=== PATIENT | female | born 1980 | race Caucasian/White ===

== ENCOUNTER 2017-01-13 14:23 | Inpatient (IN) | payer MEDICAID ==
[~2017-01-13] VITALS: Ht 152.4 cm; Wt 79.1 kg
[2017-01-13] VITALS (9 sets, daily range): BP systolic 112–128; BP diastolic 62–76; PULSE 75–82; RESP 18–20; Ht 152.4 cm; Wt 79.1 kg
[~2017-01-13 14:23] MED LIST: ACET-1145 PO; FER325 PO; IBUP800T25 GTB; MULT-761 PO; PREN-39 PO
[2017-01-13] MEDS ORDERED: LACTATED RINGER'S 1,000 ML IV SCH (14:59)
[2017-01-13] MEDS ORDERED: METHYLERGONOVINE 0.2 MG INJ IM PRN ×2 (15:00→22:00)
[2017-01-13] MEDS ORDERED: MISOPROSTOL 200 MCG TAB PR PRN ×2 (15:00→22:00)
[2017-01-13] MEDS ORDERED: OXYTOCIN 30 UNITS/LR 500 ML IV PRN ×2 (15:00→22:00)
[2017-01-13] MEDS ORDERED: CARBOPROST 250 MCG INJ IM PRN ×2 (15:00→22:00)
[2017-01-13 15:57] LABS: ADD SCAN DIFF NO
[2017-01-13] MEDS ORDERED: CLINDAMYCIN 900 MG INJ IM ONE (16:00)
[2017-01-13] MEDS ORDERED: GENTAMICIN 80 MG/NS (PMX) 50 ML IVPB SCH (16:00)
[2017-01-13] MEDS ORDERED: CLINDAMYCIN 900 MG/D5W (PMX) 50 ML IVPB SCH (16:00)
[2017-01-13 16:03] LABS: BASOPHILS % 0.3 % (0.0-2.0); EOSINOPHILS % 0.1 % (0.0-7.0); HEMATOCRIT 37.5 % (37.0-47.0); HEMOGLOBIN 12.7 g/dl (12.0-16.0); LYMPHOCYTES # 1.1 10^3/ul (0.8-2.9); MEAN CORPUSCULAR HEMOGLOBIN 31.8 pg (29.0-33.0); MEAN CORPUSCULAR HGB CONC 33.9 g/dl (32.0-37.0); MEAN CORPUSCULAR VOLUME 93.8 fl (82.0-101.0); MEAN PLATELET VOLUME 9.7 fl (7.4-10.4); MONOCYTE # 0.7 10^3/ul (0.3-0.9); MONOCYTES % 6.5 % (0.0-11.0); NEUTROPHIL # 9.4 10^3/ul (1.6-7.5); NEUTROPHILS % 82.2 % (39.0-77.0); PLATELET COUNT 312 10^3/UL (140-415); RED CELL DISTRIBUTION WIDTH 13.9 % (11.5-14.5); WHITE BLOOD COUNT 11.4 10^3/ul (4.8-10.8)
[2017-01-13 16:10] LABS: INR 0.9; PARTIAL THROMBOPLASTIN TIME 27.4 Sec (25.0-35.0); PROTIME 12.1 Sec (12.2-14.2); PT RATIO 0.9
[2017-01-13] MEDS ORDERED: ONDANSETRON 4 MG INJ IV STA (16:11)
[2017-01-13] MEDS ORDERED: CITRIC ACID/NA CITRATE 30 ML CUP PO ONE (16:30)
[2017-01-13] MEDS ORDERED: OXYTOCIN 10 UNIT INJ ONE (16:37)
[2017-01-13] MEDS ORDERED: morphine SULFATE/PF (10 MG/10 ML) INJ ONE (16:37)
[2017-01-13] MEDS ORDERED: PHENYLephrine (100 MCG/ML) 5ML SYG ONE (16:37)
[2017-01-13] MEDS ORDERED: KETOROLAC 30 MG INJ ONE (16:59)
[2017-01-13] MEDS ORDERED: METOCLOPRAMIDE 10 MG INJ ONE (16:59)
[2017-01-13] MEDS ORDERED: DEXAMETHASONE 4 MG/ML 1 ML INJ ONE (16:59)
[2017-01-13] MEDS ORDERED: HYDROmorphONE 1 MG/ML SYG IV PRN ×2 (18:00)
[2017-01-13] MEDS ORDERED: DIPHENHYDRAMINE 50 MG INJ IV PRN (18:00)
[2017-01-13] MEDS ORDERED: NALOXONE (0.4 MG/ML) INJ IV PRN (18:00)
[2017-01-13] MEDS ORDERED: ONDANSETRON 4 MG INJ IV PRN (18:00)
[2017-01-13] MEDS ORDERED: morphine 2 MG INJ IV PRN (18:00)
[2017-01-13] MEDS ORDERED: PROCHLORPERAZINE 10 MG INJ IV PRN (18:00)
[2017-01-13] MEDS ORDERED: morphine 4 MG/ML VIAL IV PRN (18:00)
[2017-01-13] MEDS: OXYTOCIN 30 UNITS/LR 500 ML IV SCH ×2 (18:15→18:39)
--- NOTE | 2017-01-13 19:05 | HP ---
Date/Time of Note Date/Time of Note DATE: 01/13/17 TIME: 19:03 OB - History Hx of Present Free Text/Dictation admitted for repeat C/S Last Menstrual Period: Apr 24, 2016 Estimated Due Date: Jan 18, 2017 : 4 Para: 3 Care: Good Care Ultrasounds: Normal mid trimester US Obstetrical Complications: Gestational Diabetes Medical Complications: Other (previous C/S X 3 ) Past Family/Social History * Past Medical, Surgical, Family and Obstetric Histories reviewed from chart. Blood Type: O+ Rubella: immune RPR/VDRL: Negative GBS Status: Negative HBsAG: Negative OB Admission Exam Physical Exam HEENT: WNL Heart: Rhythm Normal Lungs: Clear, Equal Abdomen: WNL Extremities: Normal Reflexes: Normal Cervical Dilatation: None Effacement: 0% Station: -3 Membranes: Intact Heart Rate: 140's Accelerations: Accelerations Present Decelerations: No Decelerations Varibility: Marked Contractions on Admission: None Last 72 hourBlood Glucose Bedside Glucose - 72 Hours Test 01/13/17 17:49 Bedside Glucose 79mg/dL (70-220) Last 72 hours Lab Results CBC & BMP 01/13/17 14:59 01/13/17 15:32 OB Assessment/Plan Reason for admission: section Other Assessment: term gestation previous C/S X 3 Other plan: repeat C/S ROSA HEBERT MD Jan 13, 2017 19:05
--- NOTE | 2017-01-13 19:09 | OPR ---
Operative Report Planned Procedure Procedure date Jan 13, 2017 Procedure(s) repeat C/S Performed by: ROSA HEBERT MD Assisting provider: DEEPTI ALVARES MD Anesthesiologist: MIKE WINKLER MD Pre-procedure diagnosis term gestation previous C/S X 3 Anesthesia Type: spinal Procedure Description Under satisfactory anaesthesia a Pfannenstiel incision was made two fingerbreadth above and parallel to the symphysis of pubis around the previous scar and previous scar was removed Incision was extended laterally to the border of the Recti muscles on either sides. Incision was carried down with sharp and blunt dissection until fascia was reached. Anterior Recti muscle fascia was incised in mid portion and incision extended laterally to the border of skin incision. Fascia was mobilized from muscle superiorly and Recti muscles were from midline using sharp and blunt dissection. Peritoneum was visualized; Avoiding bowel and bladder it was incised . Incision was extended superiorly and inferiorly. Bladder blade was placed. Posterior peritoneum covering the lower segment of the uterus and lower segment of the uterus were incised.Low transverse uterine incision was made on lower segment of the uterus. Incision extended laterally to the border of Round Lig. on either sides and baby was delivered from OT. position . Amniotic fluid appeared clear. Cord blood was obtained and cord had 3 vessels . Placenta was delivered spontaneously and appeared intact and complete. Intrauterine cavity was rubbed with a laparotomy sponge. Uterine incision was closed in 2 layers using running stitches of No1 Monocryl. Hemostasis appeared secure. Ovaries and Fallopian tubes were within normal limits. Announcing needle, lap sponge and instrument count to be correct abdomen was closed in layers as follows: Peritoneum and Recti muscles with running stitches of 20 Vicryl. Fascia with running stitch of No 1 PDS. Subcutaneous tissue with running stitches of 20 Chromic and skin was closed using ye. Patient tolerated the procedure well and was transferred to [facility] in good condition. Post-Procedure Post-procedure diagnosis S/P C/S Findings: Live Baby Specimen removed: No Complications: None Pt Condition post procedure: stable Disposition: PACU Physician Certification I, the undersigned physician, hereby certify that I have discussed the procedure described in this consent form with this patient (or the patient's legal member service representative), including: * The risk and benefits of the procedure; * Any adverse reactions that may reasonably be expected to occur; * Any alternative efficacious methods of treatment which may be medically viable ; * The potential problems that may occur during recuperation; * Potential for blood transfusion and associated risks/benefits; and * Any research or economic interest I may have regarding this treatment. I further certify that the patient/legally responsible person was encouraged to ask question and that all questions were answered. ROSA HEBERT MD Jan 13, 2017 19:09
[2017-01-13] MEDS ORDERED: IBUPROFEN 800 MG TAB PO SCH (22:00)
[2017-01-13] MEDS ORDERED: NA PHOSPHATE/BIPHOS 133 ML ENEMA PR PRN ×2 (22:00→22:30)
[2017-01-13] MEDS ORDERED: ACETAMINOPHEN/CODEINE #3 TAB PO PRN (22:00)
[2017-01-13] MEDS ORDERED: LANOLIN 7 GM TUBE TOP PRN (22:00)
[2017-01-13] MEDS: LACTATED RINGER'S 1,000 ML IV SCH (22:16)
[2017-01-14] VITALS: BP 114/64; PULSE 94; RESP 18
[2017-01-14] MEDS: CLINDAMYCIN 900 MG/D5W (PMX) 50 ML IVPB SCH ×2 (00:09→08:30)
[2017-01-14] MEDS: GENTAMICIN 80 MG/NS (PMX) 50 ML IVPB SCH ×2 (00:09→09:12)
[2017-01-14] MEDS: KETOROLAC 30 MG INJ IV PRN ×2 (03:48→14:04)
[2017-01-14 04:00] VITALS: BP 102/60; PULSE 83; RESP 18
[2017-01-14] MEDS: IBUPROFEN 800 MG TAB PO SCH ×3 (06:00→22:00)
[2017-01-14] MEDS: LACTATED RINGER'S 1,000 ML IV SCH ×2 (06:06→15:01)
[2017-01-14 08:59] VITALS: BP 116/84; RESP 20
[2017-01-14] MEDS ORDERED: metFORMIN (XR) 500 MG TAB PO SCH (09:00)
[2017-01-14] MEDS ORDERED: DEXTROSE 50% 50 ML SYRINGE IV PRN ×2 (09:30)
[2017-01-14] MEDS ORDERED: GLUCOSE GEL 15 GRAM TUBE BUCCAL PRN (09:30)
[2017-01-14] MEDS ORDERED: BISACODYL 10 MG SUPP PR ONE ×2 (09:30→23:36)
[2017-01-14] MEDS ORDERED: GLUCOSE GEL 15 GRAM TUBE PO PRN ×2 (09:30)
[2017-01-14] MEDS ORDERED: GLUCAGON 1 MG INJ IM PRN (09:30)
[2017-01-14] MEDS: ACCU-CHEK XX SCH ×3 (11:43→21:58)
[2017-01-14 12:30] VITALS: BP 103/69; RESP 19
[2017-01-14 16:00] VITALS: BP 106/59; PULSE 80; RESP 19
[2017-01-14] MEDS ORDERED: CLINDAMYCIN 900 MG/D5W (PMX) 50 ML IVPB SCH (16:00)
--- NOTE | 2017-01-14 16:58 | PN ---
Date/Time of Note Date/Time of Note DATE: 01/14/17 TIME: 16:56 Assessment/Plan VTE Prophylaxis VTE Prophylaxis Intervention: ambulation Lines/Catheters IV Catheter Type (from Nrsg): Peripheral IV Assessment/Plan Assessment/Plan POD # 1 S/P C/S will advance diet and ambulate Subjective 24 Hr Interval Summary NO BM Passing flatus Constitutional: BM, ambulates, flatus, improved, no complaints, urine output Pain Control: well controlled Exam/Review of Systems Vital Signs Vitals Vital Signs Date Time Temp Pulse Resp B/P Pulse Ox O2 Delivery O2 Flow Rate FiO2 01/14/17 12:30 97.9 19 103/69 Room Air 01/14/17 08:59 99 01/14/17 04:00 83 Intake and Output 01/13/17 01/13/17 01/14/17 15:00 23:00 07:00 Intake Total 500 ml Output Total 750 ml 500 ml Balance -250 ml -500 ml Exam Free Text/Dictation Abdomen: soft BS + Incision: covered Constitutional: alert, oriented, well developed Psych: nl mood/affect, no complaints Head: atraumatic, normocephalic Eyes: EOMI, nl conjunctiva, nl lids, nl sclera ENMT: mucosa pink and moist, nl external ears & nose, nl lips & teeth, nl nasal mucosa & septum Neck: non-tender, supple Respiratory: clear to auscultation, normal air movement Cardiovascular: nl pulses, regular rate and rhythm Gastrointestinal: nl liver, spleen, non-tender, soft Musculoskeletal: nl extremities to inspection, nl gait and stance Extremities: normal pulses Neurological: PHYSICIAN NEONATOLOGY II-XII intact, nl mental status, nl speech, nl strength Skin: nl turgor, rash or lesions Lymph: nl lymph nodes Results Result Diagram: 01/13/17 1532 01/13/17 1459 ROSA HEBERT MD Jan 14, 2017 16:58
[2017-01-14] MEDS ORDERED: GENTAMICIN 80 MG/NS (PMX) 50 ML IVPB SCH (17:00)
[2017-01-14 17:36] LABS: ADD SCAN DIFF NO
[2017-01-14 17:39] LABS: BASOPHILS % 0.4 % (0.0-2.0); EOSINOPHILS # 0.1 10^3/ul (0.0-0.5); EOSINOPHILS % 0.7 % (0.0-7.0); HEMATOCRIT 30.5 % (37.0-47.0); HEMOGLOBIN 10.5 g/dl (12.0-16.0); LYMPHOCYTES # 1.4 10^3/ul (0.8-2.9); LYMPHOCYTES % 12.3 % (15.0-51.0); MEAN CORPUSCULAR HEMOGLOBIN 31.8 pg (29.0-33.0); MEAN CORPUSCULAR HGB CONC 34.4 g/dl (32.0-37.0); MEAN CORPUSCULAR VOLUME 92.4 fl (82.0-101.0); MEAN PLATELET VOLUME 9.3 fl (7.4-10.4); MONOCYTE # 1.1 10^3/ul (0.3-0.9); MONOCYTES % 9.4 % (0.0-11.0); NEUTROPHIL # 8.7 10^3/ul (1.6-7.5); NEUTROPHILS % 76.6 % (39.0-77.0); PLATELET COUNT 270 10^3/UL (140-415); WHITE BLOOD COUNT 11.3 10^3/ul (4.8-10.8)
[2017-01-14] MEDS: metFORMIN (XR) 500 MG TAB PO SCH (18:11)
[2017-01-14] MEDS: OXYCODONE/ACETAMINOPHEN (5/325) TAB PO PRN (18:15)
[2017-01-14 20:00] VITALS: BP 102/58; PULSE 76; RESP 18
[2017-01-14] MEDS: SENNA/DOCUSATE NA (8.6MG/50MG) TAB PO SCH (21:58)
[2017-01-15] MEDS: CLINDAMYCIN 300 MG CAP PO SCH ×5 (00:40→23:37)
[2017-01-15] MEDS: OXYCODONE/ACETAMINOPHEN (5/325) TAB PO PRN ×3 (00:42→09:09)
[2017-01-15 04:00] VITALS: BP 105/68; PULSE 18; RESP 18
[2017-01-15] MEDS: IBUPROFEN 800 MG TAB PO SCH ×3 (06:07→21:09)
[2017-01-15 08:00] VITALS: BP 133/74; PULSE 91; RESP 18
[2017-01-15] MEDS: ACCU-CHEK XX SCH (08:10)
[2017-01-15] MEDS: SENNA/DOCUSATE NA (8.6MG/50MG) TAB PO SCH ×2 (09:06→20:58)
[2017-01-15] MEDS: metFORMIN (XR) 500 MG TAB PO SCH ×2 (09:10→20:58)
--- NOTE | 2017-01-15 10:31 | OPPN ---
Date/Time of Note Date/Time of Note DATE: 01/15/17 TIME: 10:31 Post-Anesthesia Notes Post-Anesthesia Note Activity: WNL Respiratory function: WNL Cardiovascular function: WNL Mental status: Baseline Pain reasonably controlled: Yes Hydration appropriate: Yes Nausea/Vomiting absent: Yes MIKE WINKLER MD Jan 15, 2017 10:31
--- NOTE | 2017-01-15 14:02 | DS ---
Date/Time of Note Date/Time of Note home next day DATE: 01/15/17 TIME: 14:00 Obstetrical Discharge Record Final Diagnosis Final Diagnosis: Term delivered Other Final Diagnosis S/P C/S Section Section: Repeat Condition on Discharge Physical Assessment Last Vitals: see nurses notes Voiding: Yes Bowel Movement: Yes Breast: Soft, non-tender, Filling Fundus: Firm Abdomen and Incision: soft bs + incision: healing well Episiotomy: NA Calf Tenderness: No Patient Condition: Good ROSA HEBERT MD Jan 15, 2017 14:02
--- NOTE | 2017-01-15 14:04 | DS ---
Date/Time of Note Date/Time of Note home next day DATE: 01/15/17 TIME: 14:02 Discharge Summary Admission/Discharge Info Admit Date/Time Jan 13, 2017 at 14:23 Discharge Date/Time 01/16/2017 Final Diagnosis S/P C/S Patient Condition: Good Procedures repeat C/S Hx of Present Illness 36 y/o female had repeat C/S Hospital Course uncomplicated Home Meds Reported Medications Multivitamin (MULTI VITAMIN DAILY) 1 Each Tablet, 1 EACH PO DAILY for 60 Days 11/02/13 Ferrous Sulfate* (Ferrous Sulfate*) 325 Mg Tabec, 325 MG PO DAILY for 60 Days 11/02/13 Ibuprofen* (Ibuprofen*) 800 Mg Tab, 800 MG GTB Q8 for 7 Days 11/02/13 Acetaminophen-Codeine (Tylenol With Codeine #3 Tablet) 1 Tab Tablet, 2 TAB PO Q4 Y, #30 1 Refill 11/02/13 Vits W-Ca,Fe,Fa(<1MG) ( Vitamins) 1 Tab Tablet, 1 TAB PO DAILY 10/21/13 Follow-up Plan 2-3 days for staple removal Pending Labs Laboratory Tests Test 01/14/17 15:07 01/14/17 17:15 01/14/17 21:34 01/15/17 09:03 Bedside Glucose 78mg/dL (70-220) 93mg/dL (70-220) 99mg/dL (70-220) White Blood Count 11.310^3/ul (4.8-10.8) Red Blood Count 3.3010^6/ul (4.20-5.40) Hemoglobin 10.5g/dl (12.0-16.0) Hematocrit 30.5% (37.0-47.0) Mean Corpuscular Volume 92.4fl (82.0-101.0) Mean Corpuscular Hemoglobin 31.8pg (29.0-33.0) Mean Corpuscular Hemoglobin Concent 34.4g/dl (32.0-37.0) Red Cell Distribution Width 14.0% (11.5-14.5) Platelet Count 75219^3/UL (140-415) Mean Platelet Volume 9.3fl (7.4-10.4) Neutrophils % 76.6% (39.0-77.0) Lymphocytes % 12.3% (15.0-51.0) Monocytes % 9.4% (0.0-11.0) Eosinophils % 0.7% (0.0-7.0) Basophils % 0.4% (0.0-2.0) Nucleated Red Blood Cells % 0.0/100WBC (0.0-0.0) Neutrophils # 8.710^3/ul (1.6-7.5) Lymphocytes # 1.410^3/ul (0.8-2.9) Monocytes # 1.110^3/ul (0.3-0.9) Eosinophils # 0.110^3/ul (0.0-0.5) Basophils # 0.010^3/ul (0.0-0.1) Nucleated Red Blood Cells # 0.010^3/ul (0.0-0.0) Test 01/15/17 11:43 01/15/17 13:44 Bedside Glucose 130mg/dL (70-220) 123mg/dL (70-220) ROSA HEBERT MD Jan 15, 2017 14:04
--- NOTE | 2017-01-15 14:05 | PD.PPDC ---
[employer] Discharge Instruction Provider Information Physician Information 36 y/o female had repeat C/S Diagnosis Final Diagnosis: S/P C/S Condition Patient Condition: Good Diet Diet: Resume Regular Diet Activity/Restrictions Activity: February Shower Restrictions: No Exercising No Lifting Nothing in the Vagina Return to Work or School: Mar 17, 2017 Follow-up Follow-up with Physician: 2, 3, Day/Days (for staple removal ) Return to clinic for [facility]DERMAN Instructions: Fever greater than 101 Chills OB Instructions: Breast Tenderness Depression Surgical Instructions: Incisional Drainage Incisional Redness ROSA HEBERT MD Jan 15, 2017 14:05
[2017-01-15] MEDS ORDERED: IBUP800T25 PO (14:08)
[2017-01-15] MEDS ORDERED: METF500T3 PO (14:08)
[2017-01-15] MEDS ORDERED: MULT-761 PO (14:08)
[2017-01-15] MEDS ORDERED: Oxycodone/Acetamin (5/325) PO (14:08)
[2017-01-15] MEDS ORDERED: IBUP800T25 GTB (14:08)
[2017-01-15 16:00] VITALS: BP 128/72; PULSE 81; RESP 19
[2017-01-15 20:20] VITALS: BP 108/60; PULSE 80; RESP 18
[2017-01-16 03:56] VITALS: BP 105/57; PULSE 77; RESP 18
[2017-01-16] MEDS: OXYCODONE/ACETAMINOPHEN (5/325) TAB PO PRN (03:56)
[2017-01-16] MEDS: CLINDAMYCIN 300 MG CAP PO SCH (05:39)
[2017-01-16] MEDS: IBUPROFEN 800 MG TAB PO SCH ×2 (05:39→15:10)
--- NOTE | 2017-01-16 05:56 | RADRPT ---
PROCEDURE: XR Chest. CLINICAL INDICATION: Positive PPD TECHNIQUE: PA and lateral views of the chest were obtained. COMPARISON: None. FINDINGS: No focal airspace opacification, pleural effusion or pneumothorax is seen. The cardiomediastinal si lhouette is within normal limits for size. The osseous structures are unremarkable. IMPRESSION: No radiographic evidence of acute cardiopulmonary disease. RPTAT: HH .Daniella Hayes MD, MD Date Time Electronically viewed and signed by .Daniella Hayes MD, on 01/16/2017 05:55 .G/
[2017-01-16 08:10] VITALS: BP 120/68; PULSE 74; RESP 18
[2017-01-16] MEDS: SENNA/DOCUSATE NA (8.6MG/50MG) TAB PO SCH (08:35)
[2017-01-16] MEDS: metFORMIN (XR) 500 MG TAB PO SCH (08:35)
[2017-01-16] MEDS ORDERED: DIPHTH/TET/ACEL PERTUSS (ADULT) 0.5 ML VIAL IM* ONE (09:00)
== END 2017-01-16 17:52 | disposition home or self-care (01) | DRG 766 ==
LOC: L-D 14:23 → PP1 22:14
PROVIDERS: ADMIT Obstetrics & Gynecology; ATTEND Obstetrics & Gynecology
PROC: 10D00Z1 Extraction of Products of Conception, Low, Open Approach (ICD-10-PCS; principal; 2017-01-13 15:00)
DX: O34.211 Maternal care for low transverse scar from previous cesarean delivery (principal); O24.429 Gestational diabetes mellitus in childbirth, unspecified control; Z3A.38 38 weeks gestation of pregnancy; Z37.0 Single live birth
CPT/HCPCS: 71020; 82947; 82962; 85025; 85610; 85730; 86592; 86850; 86900; 86901; 87340; 90715; J1100; J1170; J1200; J1580; J1885; J2274; J2370; J2405; J2590; J2765; J7120

== ENCOUNTER 2018-08-08 13:27 | Emergency (ER) | END 2018-08-08 15:30 | disposition home or self-care (01) ==

== ENCOUNTER 2019-02-26 23:38 | Emergency (ER) | payer MEDICAID ==
[~2019-02-26] VITALS: Ht 157.5 cm; Wt 75.0 kg
[~2019-02-26 23:38] MED LIST changes: -ACET-1145 PO; +ACET500C5 PO; +IBUP-1542 PO; +IBUP-1544 PO; +IBUP-1545 GTB; -IBUP800T25 GTB; +METF500T3 PO; +Oxycodone/Acetamin (5/325) PO; -PREN-39 PO
[2019-02-26 23:43] VITALS: Ht 157.5 cm; Wt 75.0 kg
--- NOTE | 2019-02-27 03:39 | ERD ---
ER Documentation Chief Complaint Chief Complaint bib self, cc: cough 3 days, no other symptoms HPI This is a 38-year-old female who presents here in emergency department with complaints of cough, throat pain for about 3 days. LMP: Stated that was last Friday. G4, . Denies headache, head injury, loss of consciousness, dizziness, neck pain, neck stiffness, throat pain, difficulty swallowing, difficulty breathing lying flat, shoulder pain, chest pain, back pain, abdominal pain, nausea, vomiting, constipation, diarrhea, urinary symptoms, or possibility being , loss of bowel and bladder control, trauma, injury, falls, difficulty walking due to pain, numbness or tingling sensation, calf pain, recent travel, recent major surgery in the last 3 weeks, calf pain, recent long travel, recent exposure to any illness, recent antibiotic use in the last 3 months, fever, chills, seizures. Past medical history: Surgical history: Social: Denies smoking, use of alcoholic beverages, use of illegal drugs. ROS All systems reviewed and are negative except as per history of present illness. Medications Home Meds Active Scripts Ibuprofen* (Motrin*) 800 Mg Tab, 800 MG PO Q6H PRN for PAIN AND OR ELEVATED TEMP, #30 TAB Prov:PASILABAN,GANGAAR F 02/27/19 Benzonatate* (Tessalon Perle*) 100 Mg Capsule, 100 MG PO Q8H PRN for COUGH, #15 CAP Prov:PASILABAN,GANGAAR F 02/27/19 Azithromycin* (Zithromax*) 250 Mg Tablet, 250 MG PO .ZPACK DIRECTED, #6 TAB TAKE 500 MG (2 TABS) THE FIRST DAY THEN 250 MG (1 TAB) DAYS 2-5 Prov:PASILABAN,KLAR F 02/27/19 Acetaminophen* (Tylophen*) 500 Mg Capsule, 1 CAP PO Q6H PRN for PAIN AND OR ELEVATED TEMP, #20 CAP Prov:MANJINDER GUZMAN. TERMITE TECHNICIAN 08/08/18 Ibuprofen* (Motrin*) 600 Mg Tab, 600 MG PO Q6H PRN for PAIN AND OR ELEVATED TEMP, #30 TAB Prov:MANJINDER GUZAMN. TERMITE TECHNICIAN 08/08/18 Metformin* (Glucophage* XR) 500 Mg Tab.sr.24h, 500 MG PO BID, #120 4 Refills Prov:JACQUELINE-TABIBZADEH,KAMROOZ MD 01/15/17 [Oxycodone/Acetamin (5/325)] 1 TAB TAB No Conflict Check, 2 TAB PO Q4H PRN for PAIN LEVEL 6-10, #30 0 Refills Prov:ROSA HEBERT MD 01/15/17 Ibuprofen* (Ibuprofen*) 800 Mg Tablet, 800 MG PO Q8, #20 TAB 0 Refills Prov:ROSA HEBERT MD 01/15/17 Multivitamin (MULTI VITAMIN DAILY) 1 Each Tablet, 1 EACH PO DAILY for 60 Days, #120 1 Refill Prov:ROSA HEBERT MD 01/15/17 Ibuprofen* (Ibuprofen*) 800 Mg Tab, 800 MG GTB Q8 for 7 Days, #30 0 Refills Prov:ROSA HEBERT MD 01/15/17 Reported Medications Ferrous Sulfate* (Ferrous Sulfate*) 325 Mg Tabec, 325 MG PO DAILY for 60 Days 11/02/13 Allergies Allergies: Coded Allergies: Penicillins (Verified Allergy, Unknown, RASH, 04/15/07) PMhx/Soc History of Surgery: Yes (C/S x4) Anesthesia Reaction: No Hx Miscellaneous Medical Probl: Yes (Gestational DM) Hx Alcohol Use: No Hx Substance Use: No Hx Tobacco Use: No Smoking Status: Never smoker Physical Exam Vitals Physical Exam Const: No acute distress Head: Atraumatic Eyes: Normal Conjunctiva. Eyeballs are not sunken. No signs of severe dehydration. ENT: Normal External Ears, Nose and Mouth. Bile not erythematous. No bleedi ng. No discharge. Nose: Has frontal and maxillary sinus tenderness to palpation. Throat: Uvula is in midline and nondisplaced. Tonsils are +1 bilaterally without redness without exudates. Tolerating secretions. Patent airway. Speaks full and clear sentences. Neck: Full range of motion. No meningismus. No nuchal rigidity. No signs of meningeal irritation. Resp: Clear to auscultation bilaterally Cardio: Regular rate and rhythm, no murmurs Abd: Soft, non tender, non distended. Normal bowel sounds Skin: No petechiae or rashes. Color appears normal for ethnicity. No skin tenting. No signs of severe dehydration. Back: No midline or flank tenderness Ext: No cyanosis, or edema Neur: Awake and alert. No neurological deficit. Psych: Normal Mood and Affect Results 24 hrs Current Medications Medications Dose Sig/Krystyna Start Time Status Last (Trade) Ordered Route PRN Stop Time Admin Dose Reason Admin Ibuprofen 800 mg ONCE ONCE 02/27/19 DC 02/27/19 (Motrin) PO 04:00 03:48 02/27/19 04:01 5 ml ONCE ONCE 02/27/19 DC 02/27/19 Guaifenesin/ PO 04:00 03:49 Dextromethorp 02/27/19 04:01 looney (Robitussin Dm Liquid Cup) Procedures/MDM Diagnostic tests: Clinical exam. Treatment: Motrin. Robitussin. Re-evaluation: Denies pain. Stated that she feels much better at this time and that she is ready to go home. Differential diagnosis I have low suspicion for sepsis, meningitis, mastoiditis, peritonsillar abscess, pneumonia, severe dehydration, bronchospasm. Final diagnosis: Bronchitis. Prescription: Azithromycin. Tessalon Perles. Motrin. Zofran. Follow-up with PCP in the next 24-48 hours. Come back here in the emergency department for any new symptoms or any worsening symptoms. All questions and concerns were answered. Patient and family members verbalized understanding and agreed with plan of care. Hemodynamically stable on discharge. Departure Diagnosis: Primary Impression: Cough Additional Impression: Bronchitis Condition: Stable Additional Instructions: Follow-up with PCP in the next 24-48 hours. Come back here in the emergency department for any new symptoms or any worsening symptoms. APARNA DIETRICH February 27, 2019 03:39
[2019-02-27] MEDS ORDERED: GUAIFENESIN/DM 5ML CUP PO ONE (04:00)
[2019-02-27] MEDS ORDERED: IBUPROFEN 800 MG TAB PO ONE (04:00)
[2019-02-27] MEDS ORDERED: AZIT250T PO (04:11)
[2019-02-27] MEDS ORDERED: IBUP800T48 PO (04:12)
[2019-02-27] MEDS ORDERED: BENZ-6 PO (04:12)
[2019-02-27 04:30] VITALS: BP 114/72; PULSE 58; RESP 17
== END 2019-02-27 04:30 | disposition home or self-care (01) ==
LOC: FTE 23:38
DX: J40 Bronchitis, not specified as acute or chronic (principal)
CPT/HCPCS: Z7502; Z7610; 99283